=== PATIENT | female | born 1960 | race Caucasian/White ===

== ENCOUNTER → 2016-05-29 | Outpatient (CLI) | payer OTHER ==
--- NOTE | 2016-05-29 10:24 | REPMRS ---
Patient History The patient states she has not had a clinical breast exam in over a year. Patient is postmenopausal. No known family history of cancer. Digital Woman Screen Mammo: May 29, 2016 - Exam #: [id number] Bilateral CC and MLO view(s) were taken. Technologist: Shira Mandel Technologist FINDINGS: There are scattered fibroglandular densities. There has been no change in the appearance of the mammogram from the prior studies. There is a mild amount of residual fibroglandular tissue which is fairly symmetric. There is no interval development of dominant mass, architectural distortion, or clustered microcalcification suggestive of malignancy. ASSESSMENT: BI-RADS/ACR category 1 mammogram. Negative. Recommendation Routine screening mammogram in 1 year (for women over age 40). This mammogram was interpreted with the aid of an FDA-approved computer-aided dectection system. Electronically Signed By: Chance Ku MD 05/29/16 [id number]
== END ==
LOC: M WHC 09:21
PROVIDERS: ATTEND Family Medicine
DX: Z12.39 Encounter for other screening for malignant neoplasm of breast (principal)

== ENCOUNTER → 2016-06-24 | Outpatient (CLI) | payer OTHER | LOC: M LAB 09:40 | PROVIDERS: ATTEND Family Medicine | DX: E11.8 Type 2 diabetes mellitus with unspecified complications (principal) ==

== ENCOUNTER → 2016-07-01 | Outpatient (REF) | payer OTHER | LOC: M SFHCPLAZ 09:22 | PROVIDERS: ATTEND Family Medicine | DX: E11.8 Type 2 diabetes mellitus with unspecified complications (principal) ==

== ENCOUNTER → 2016-08-12 | Day surgery (SDC) | payer OTHER ==
[~2016-08-12] VITALS: Ht 157.5 cm; Wt 99.8 kg
[~2016-08-12] MED LIST: ACETAMINOPHEN 325 MG TAB PO PRN; ACETYLCHOLINE OPHTH SOLN 1% 2ML As Ordered ONE; ALBU17IN INH; ARNU1INH INH; ATOR40TA PO; AcetaZOLAMIDE 500MG INJECTION (J1120) As Ordered ONE; BISO10TA6 PO; BSS with VANC/TOB/EPI for EYE CASES IR ONE; CYCLOPENTOLATE 2% OPHTH SOLN OD ONE; D5W/0.2% SODIUM CHLORIDE 250 ML IV SCH; GEMF600T PO; HEALON DUET (HEALON 10MG/ML 0.55ML & HEALON ENDOCOAT 30MG/ML 0.85ML) As Ordered ONE; INSULANT SC; JANU100T PO; KETOROLAC 0.5% OPHTH SOLN OD ONE; LEVO175T19 PO; LIDOCAINE 1% SDV 5 ML VIAL As Ordered ONE; LIDOCAINE 4% INJ 5 ML AMP OU ONE; METF500T PO; MIDAZOLAM INJ 2 MG/2 ML VIAL (J2250) As Ordered ONE; MOXIFLOXACIN IN BSS 0.25MG/0.25ML INTRACAMERAL INJ (OR EYE ONLY)(J2280) As Ordered ONE; NOVOINJ3 SC; OFLOXACIN 0.3 % (OCUFLOX) OPTH SOL 5ML OD ONE; OMEP20CA3 PO; PHENYLEPHRINE 2.5% OPHTH SOL 2ML OD ONE; POVIDONE-IODINE 5% OPHTH PREP SOL 30ML As Ordered ONE; PROPARACAINE 0.5% OPHTH SOL 15ML OD PRN; RANI150T PO; SYST1SOL OU; TOUJ1.2I SC; TRIAMCINOLONE PRES FR 40 MG/ML 1ML(TRIESENCE)(OR EYE ONLY)(J3300 PER 1MG) As Ordered ONE; TRIMETHOBENZAMIDE 300 MG CAP PO PRN; TROPICAMIDE 1% OPHTH SOLN 2 ML OD ONE; VITA1TAB27 PO; fentaNYL 100 MCG/2 ML INJECTION (J3010) As Ordered ONE
[2016-08-12 14:20] VITALS: BP 129/77
--- NOTE | 2016-08-12 20:37 | RO ---
DATE OF PROCEDURE: 08/12/2016 PREPROCEDURE DIAGNOSIS: Cataract of left eye. POSTPROCEDURE DIAGNOSIS: Cataract of left eye. PROCEDURE: Femtosecond laser and phacoemulsification of the intraocular lens with lens implantation left eye. Intraocular lens power used was PCB00, power 18.5 diopter. SURGEON: Marc Olson MD MANAGER CT: None. ANESTHESIA: Local IV standby. FINDINGS: Cataract of left eye. COMPLICATIONS: None. DESCRIPTION OF PROCEDURE: The patient was brought to the operating room and laid in supine position. The left eye was prepped and draped in a sterile fashion for opthalmic surgery. A lid speculum was placed. A sideport incision was then made and EndoCoat was injected into the anterior chamber. Subsequent to that temporal clear corneal incision was made with a 2.5 mm Keratome and capsulorrhexis was carried out, followed by hydrodissection, phacoemulsification in the capsular bag. The patient was extremely agitated and could not hold straight. More versed was given. At the time of the insertion of the intraocular lens after the Viscoelastic was placed, the patient again made a sudden movement and the edge of the lens nicked the posterior capsule superiorly. A small rent was noted. It was felt at that point after situating the lens, after positioning in the lens, that the lens was in pretty stable condition. Excess Viscoelastic was then aspirated. Miochol was placed. The lid speculum removed. Wound hydrated. Kenalog and intracameral moxifloxacin was then given. The patient was returned to the recovery room and the events of the surgery were discussed in detail with the patient.
== END | disposition home or self-care (01) ==
LOC: M SDC 10:46
PROVIDERS: ATTEND Ophthalmology
DX: H26.9 Unspecified cataract (principal); I10 Essential (primary) hypertension; E03.9 Hypothyroidism, unspecified; E78.5 Hyperlipidemia, unspecified; E11.9 Type 2 diabetes mellitus without complications; K21.9 Gastro-esophageal reflux disease without esophagitis; J45.909 Unspecified asthma, uncomplicated; Z79.899 Other long term (current) drug therapy; Z91.040 Latex allergy status; Z88.0 Allergy status to penicillin; Z88.2 Allergy status to sulfonamides; Z88.8 Allergy status to other drugs, medicaments and biological substances; Z91.030 Bee allergy status
CPT/HCPCS: 66984; J1120; J2250; J2280; J3010; J3300

== ENCOUNTER → 2016-10-07 | Outpatient (REF) | payer OTHER ==
[~2016-10-07] MED LIST changes: -ACETAMINOPHEN 325 MG TAB PO PRN; -ACETYLCHOLINE OPHTH SOLN 1% 2ML As Ordered ONE; -AcetaZOLAMIDE 500MG INJECTION (J1120) As Ordered ONE; -BSS with VANC/TOB/EPI for EYE CASES IR ONE; -CYCLOPENTOLATE 2% OPHTH SOLN OD ONE; -D5W/0.2% SODIUM CHLORIDE 250 ML IV SCH; -HEALON DUET (HEALON 10MG/ML 0.55ML & HEALON ENDOCOAT 30MG/ML 0.85ML) As Ordered ONE; -KETOROLAC 0.5% OPHTH SOLN OD ONE; -LIDOCAINE 1% SDV 5 ML VIAL As Ordered ONE; -LIDOCAINE 4% INJ 5 ML AMP OU ONE; -MIDAZOLAM INJ 2 MG/2 ML VIAL (J2250) As Ordered ONE; -MOXIFLOXACIN IN BSS 0.25MG/0.25ML INTRACAMERAL INJ (OR EYE ONLY)(J2280) As Ordered ONE; -OFLOXACIN 0.3 % (OCUFLOX) OPTH SOL 5ML OD ONE; -PHENYLEPHRINE 2.5% OPHTH SOL 2ML OD ONE; -POVIDONE-IODINE 5% OPHTH PREP SOL 30ML As Ordered ONE; -PROPARACAINE 0.5% OPHTH SOL 15ML OD PRN; -TRIAMCINOLONE PRES FR 40 MG/ML 1ML(TRIESENCE)(OR EYE ONLY)(J3300 PER 1MG) As Ordered ONE; -TRIMETHOBENZAMIDE 300 MG CAP PO PRN; -TROPICAMIDE 1% OPHTH SOLN 2 ML OD ONE; -fentaNYL 100 MCG/2 ML INJECTION (J3010) As Ordered ONE
[2016-10-07 12:24] LABS: CALCIUM LEVEL 8.6 MG/DL (8.5-10.1); CREATININE FOR GFR 1.12 MG/DL (0.55-1.02); GLOMERULAR FILTRATION RATE 53.4 (>51); POTASSIUM SERUM 4.1 MEQ/L (3.5-5.1)
== END ==
LOC: M SFHCPLAZ 09:25
PROVIDERS: ATTEND Family Medicine
DX: I10 Essential (primary) hypertension (principal); E11.8 Type 2 diabetes mellitus with unspecified complications

== ENCOUNTER → 2016-10-15 | Outpatient (REF) | payer OTHER | LOC: M SFHCPLAZ 10-14 11:40 | PROVIDERS: ATTEND Family Medicine | DX: E11.8 Type 2 diabetes mellitus with unspecified complications (principal) ==

== ENCOUNTER → 2016-11-11 | Day surgery (SDC) | payer OTHER ==
[~2016-11-11] VITALS: Ht 157.5 cm; Wt 101.2 kg
[~2016-11-11] MED LIST changes: +ACETAMINOPHEN 325 MG TAB PO PRN; +BSS with VANC/TOB/EPI for EYE CASES IR ONE; +CYCLOPENTOLATE 2% OPHTH SOLN 2ML BTL As Ordered ONE; +CYCLOPENTOLATE 2% OPHTH SOLN 2ML BTL OS ONE; +HEALON DUET (HEALON 10MG/ML 0.55ML & HEALON ENDOCOAT 30MG/ML 0.85ML) As Ordered ONE; +KETOROLAC 0.5% OPHTH SOLN OS ONE; +LIDOCAINE 1% SDV 5 ML VIAL As Ordered ONE; +LIDOCAINE 4% INJ 5 ML AMP OU ONE; +MIDAZOLAM INJ 2 MG/2 ML VIAL (J2250) As Ordered ONE; +MOXIFLOXACIN IN BSS 0.25MG/0.25ML INTRACAMERAL INJ (OR EYE ONLY)(J2280) As Ordered ONE; +OFLOXACIN 0.3 % (OCUFLOX) OPTH SOL 5ML As Ordered ONE; +OFLOXACIN 0.3 % (OCUFLOX) OPTH SOL 5ML OS ONE; +PHENYLEPHRINE 2.5% OPHTH SOL 2ML As Ordered ONE; +PHENYLEPHRINE 2.5% OPHTH SOL 2ML OS ONE; +POVIDONE-IODINE 5% OPHTH PREP SOL 30ML As Ordered ONE; +TRIAMCINOLONE PRES FR 40 MG/ML 1ML(TRIESENCE)(OR EYE ONLY)(J3300 PER 1MG) As Ordered ONE; +TRIMETHOBENZAMIDE 300 MG CAP PO PRN; +TROPICAMIDE 1% OPHTH SOLN 2ML As Ordered ONE; +TROPICAMIDE 1% OPHTH SOLN 2ML OS ONE; +fentaNYL 100 MCG/2 ML INJECTION (J3010) As Ordered ONE
[2016-11-11 11:15] VITALS: BP 139/62
== END | disposition home or self-care (01) ==
LOC: M SDC 10:40
PROVIDERS: ATTEND Ophthalmology
DX: H25.9 Unspecified age-related cataract (principal); I10 Essential (primary) hypertension; E78.5 Hyperlipidemia, unspecified; E03.9 Hypothyroidism, unspecified; K21.9 Gastro-esophageal reflux disease without esophagitis; J45.909 Unspecified asthma, uncomplicated; E11.9 Type 2 diabetes mellitus without complications; Z88.8 Allergy status to other drugs, medicaments and biological substances; Z91.040 Latex allergy status; Z91.030 Bee allergy status; Z88.2 Allergy status to sulfonamides; Z88.0 Allergy status to penicillin; Z79.899 Other long term (current) drug therapy

== ENCOUNTER → 2017-01-08 | Outpatient (REF) | payer OTHER ==
[~2017-01-08] MED LIST changes: -ACETAMINOPHEN 325 MG TAB PO PRN; -ATOR40TA PO; +ATOR40TA75 PO; -BSS with VANC/TOB/EPI for EYE CASES IR ONE; -CYCLOPENTOLATE 2% OPHTH SOLN 2ML BTL As Ordered ONE; -CYCLOPENTOLATE 2% OPHTH SOLN 2ML BTL OS ONE; -HEALON DUET (HEALON 10MG/ML 0.55ML & HEALON ENDOCOAT 30MG/ML 0.85ML) As Ordered ONE; -KETOROLAC 0.5% OPHTH SOLN OS ONE; -LIDOCAINE 1% SDV 5 ML VIAL As Ordered ONE; -LIDOCAINE 4% INJ 5 ML AMP OU ONE; -METF500T PO; +METF500T13 PO; -MIDAZOLAM INJ 2 MG/2 ML VIAL (J2250) As Ordered ONE; -MOXIFLOXACIN IN BSS 0.25MG/0.25ML INTRACAMERAL INJ (OR EYE ONLY)(J2280) As Ordered ONE; -OFLOXACIN 0.3 % (OCUFLOX) OPTH SOL 5ML As Ordered ONE; -OFLOXACIN 0.3 % (OCUFLOX) OPTH SOL 5ML OS ONE; -PHENYLEPHRINE 2.5% OPHTH SOL 2ML As Ordered ONE; -PHENYLEPHRINE 2.5% OPHTH SOL 2ML OS ONE; -POVIDONE-IODINE 5% OPHTH PREP SOL 30ML As Ordered ONE; -TRIAMCINOLONE PRES FR 40 MG/ML 1ML(TRIESENCE)(OR EYE ONLY)(J3300 PER 1MG) As Ordered ONE; -TRIMETHOBENZAMIDE 300 MG CAP PO PRN; -TROPICAMIDE 1% OPHTH SOLN 2ML As Ordered ONE; -TROPICAMIDE 1% OPHTH SOLN 2ML OS ONE; -fentaNYL 100 MCG/2 ML INJECTION (J3010) As Ordered ONE
== END ==
LOC: M SFHCPLAZ 09:21
PROVIDERS: ATTEND Family Medicine
DX: E11.22 Type 2 diabetes mellitus with diabetic chronic kidney disease (principal)

== ENCOUNTER → 2017-02-12 | Outpatient (REF) | payer OTHER | LOC: M SFHCPLAZ 13:44 | PROVIDERS: ATTEND Family Medicine | DX: D18.01 Hemangioma of skin and subcutaneous tissue (principal) ==

== ENCOUNTER → 2017-07-25 | Outpatient (REF) | payer OTHER ==
[2017-07-25 13:58] LABS: ANION GAP 10 MEQ/L (8-16); BLOOD UREA NITROGEN 29 MG/DL (7-18); CALCIUM LEVEL 9.3 MG/DL (8.5-10.1); CARBON DIOXIDE LEVEL 23 MEQ/L (21-32); CHLORIDE LEVEL 111 MEQ/L (98-107); CREATININE FOR GFR 1.12 MG/DL (0.55-1.30); GLOMERULAR FILTRATION RATE 53.2 (>51); GLUCOSE, FASTING 77 MG/DL (70-100); POTASSIUM SERUM 4.2 MEQ/L (3.5-5.1); SODIUM LEVEL 144 MEQ/L (136-145); THYROID STIMULATING HORMONE 0.301 uIU/ML (0.358-3.740)
[2017-07-25 15:09] LABS: ESTIMATED AVERAGE GLUCOSE 157 MG/DL (60-110); HEMOGLOBIN A1c 7.1 %
== END ==
LOC: M SFHCPLAZ 11:11
DX: E11.22 Type 2 diabetes mellitus with diabetic chronic kidney disease (principal); I10 Essential (primary) hypertension; E03.9 Hypothyroidism, unspecified

== ENCOUNTER 2017-12-02 21:49 | Inpatient (IN) | payer OTHER ==
[2017-12-02] MEDS: LABETALOL HCL 100 MG/20 ML VIAL IV (22:49)
[2017-12-02 23:05] LABS: BASO # 0.1 10^3/uL (0.0-0.2); BASO % 0.5 % (0.0-1.0); EOS # 0.2 10^3/uL (0.0-0.50); EOS % 2.2 % (0.0-3.0); HEMATOCRIT 38.7 % (36.0-47.0); HEMOGLOBIN 12.9 g/dl (12.0-15.5); IMMATURE GRANULOCYTE % 0.9 % (0-3.0); LYMPH # 2.5 10^3/uL (1.5-4.5); MEAN CORPUSCULAR HEMOGLOBIN 29.2 pg (27.0-33.0); MEAN CORPUSCULAR HGB CONC 33.3 g/dl (32.0-36.5); MEAN CORPUSCULAR VOLUME 87.6 fl (80.0-96.0); NEUTROPHILS # 5.8 10^3/uL (1.8-7.7); NEUTROPHILS % 60.4 % (36.0-66.0); PLATELET COUNT, AUTOMATED 238 10^3/uL (150-450); RED BLOOD COUNT 4.42 10^6/uL (4.00-5.40); RED CELL DISTRIBUTION WIDTH 14.9 % (11.5-14.5); WHITE BLOOD COUNT 9.6 10^3/uL (4.0-10.0)
[2017-12-02 23:19] LABS: PROTHROMBIN TIME 13.3 SECONDS (12.1-14.4)
[2017-12-02 23:20] LABS: PARTIAL THROMBOPLASTIN TIME 26.2 SECONDS (25.4-37.6)
[2017-12-02 23:30] LABS: ANION GAP 8 MEQ/L (8-16); BLOOD UREA NITROGEN 27 MG/DL (7-18); CALCIUM LEVEL 8.9 MG/DL (8.5-10.1); CARBON DIOXIDE LEVEL 27 MEQ/L (21-32); CHLORIDE LEVEL 111 MEQ/L (98-107); CK-MB VALUE MASS 1.4 NG/ML (<3.6); CPK CREATINE PHOSPHOKINASE 99 U/L (26-192); CREATININE FOR GFR 1.77 MG/DL (0.55-1.30); GLOMERULAR FILTRATION RATE 31.4 (>51); GLUCOSE, FASTING 114 MG/DL (70-100); MB/CK RELATIVE INDEX 1.41 (< OR =4); POTASSIUM SERUM 4.2 MEQ/L (3.5-5.1); SODIUM LEVEL 146 MEQ/L (136-145); TROPONIN I < 0.02 NG/ML (< 0.10)
[2017-12-03] MEDS ORDERED: niCARdipine IV 40 MG in APPROPRIATE DILUENT 1 EA IV (00:15)
[2017-12-03] MEDS ORDERED: LORazepam 2 MG/ML VIAL (J2060) As Ordered (01:28)
[2017-12-03] MEDS ORDERED: FAMOTIDINE 20 MG TAB PO (01:30)
[2017-12-03] MEDS ORDERED: ALBUTEROL 90 MCG/ACT 8GM HFA INHALER INH (01:30)
[2017-12-03] MEDS: LORazepam 2 MG/ML VIAL (J2060) IV (01:30)
[2017-12-03] MEDS ORDERED: GLUCOSE 4 GM CHEW TABLET PO (01:45)
[2017-12-03] MEDS ORDERED: DEXTROSE 50% 50 ML SYRINGE IV (01:45)
[2017-12-03] MEDS ORDERED: GLUCAGON FOR INJ 1 MG VIAL (J1610) SC (01:45)
[2017-12-03] MEDS: NS 0.45% IV ×2 (04:11→12:28)
[2017-12-03] MEDS: LEVOTHYROXINE 150MCG TABLET (0.15MG) PO (05:14)
[2017-12-03 07:06] LABS: BEDSIDE GLUCOSE 103 MG/DL (70-105)
[2017-12-03] MEDS: HumaLOG INSULIN (NovoLOG) PER UNIT SC ×3 (07:30→18:56)
[2017-12-03] MEDS ORDERED: ROSUVASTATIN 10 MG TAB (CRESTOR) PO (09:00)
[2017-12-03] MEDS ORDERED: BISOPROLOL FUMARATE 10 MG TAB PO (09:00)
[2017-12-03] MEDS: HEPARIN SOD (PORCINE) 5000 UNITS/ML VIAL SQ ×2 (09:07→20:58)
[2017-12-03] MEDS: ASPIRIN 81 MG ENTERIC TAB PO (09:07)
[2017-12-03] MEDS: ATORVASTATIN 20 MG TAB PO (09:07)
[2017-12-03] MEDS: OMEPRAZOLE 20 MG CAP PO (09:07)
[2017-12-03] MEDS: VITAMIN D 1,000 INTERNATIONAL UNITS TABLET PO (09:07)
[2017-12-03 11:52] LABS: BEDSIDE GLUCOSE 186 MG/DL (70-105)
[2017-12-03 17:02] LABS: BEDSIDE GLUCOSE 135 MG/DL (70-105)
[2017-12-03 18:47] LABS: BEDSIDE GLUCOSE 125 MG/DL (70-105)
[2017-12-03 20:47] LABS: BEDSIDE GLUCOSE 207 MG/DL (70-105)
[2017-12-03] MEDS: LORATADINE 10 MG TAB PO (20:58)
[2017-12-03] MEDS: LEVEMIR (INSULIN DETEMIR) 1 UNITS/0.01ML SC (20:58)
[2017-12-03] MEDS: MONTELUKAST 10 MG TAB PO (20:58)
[2017-12-03] MEDS ORDERED: LEVEMIR (INSULIN DETEMIR) 1 UNITS/0.01ML SC (21:00)
[2017-12-03 21:07] LABS: KETONE, URINE AUTO RFX NEGATIVE (NEGATIVE); RBC, URINE AUTO RFX 9 /HPF (0-3); SPECIFIC GRAVITY UR AUTO RFX 1.008 (1.002-1.035); SQUAM EPITHELIAL CELL UR AURFX 2 /HPF (0-6)
[2017-12-03 21:08] LABS: LEUKOCYTE ESTERASE UR AUTO RFX 3+ (NEGATIVE); NITRITE, URINE AUTO RFX POSITIVE (NEGATIVE); WBC, URINE AUTO RFX 182 /HPF (0-3)
[2017-12-03] MEDS: ACETAMINOPHEN TAB 650MG DOSE (2X325MG) PO (22:46)
[2017-12-04] MEDS: LABETALOL HCL 100 MG/20 ML VIAL IV ×2 (04:24→17:00)
[2017-12-04] MEDS: LEVOTHYROXINE 150MCG TABLET (0.15MG) PO (05:01)
[2017-12-04 06:33] LABS: HEMATOCRIT 39.9 % (36.0-47.0); HEMOGLOBIN 13.4 g/dl (12.0-15.5); MEAN CORPUSCULAR HEMOGLOBIN 28.8 pg (27.0-33.0); MEAN CORPUSCULAR HGB CONC 33.6 g/dl (32.0-36.5); MEAN CORPUSCULAR VOLUME 85.8 fl (80.0-96.0); PLATELET COUNT, AUTOMATED 212 10^3/uL (150-450); RED BLOOD COUNT 4.65 10^6/uL (4.00-5.40); RED CELL DISTRIBUTION WIDTH 14.8 % (11.5-14.5); WHITE BLOOD COUNT 7.4 10^3/uL (4.0-10.0)
[2017-12-04 06:48] LABS: ANION GAP 10 MEQ/L (8-16); BLOOD UREA NITROGEN 20 MG/DL (7-18); CALCIUM LEVEL 9.3 MG/DL (8.5-10.1); CARBON DIOXIDE LEVEL 26 MEQ/L (21-32); CHLORIDE LEVEL 111 MEQ/L (98-107); CREATININE FOR GFR 1.28 MG/DL (0.55-1.30); GLOMERULAR FILTRATION RATE 45.6 (>51); GLUCOSE, FASTING 108 MG/DL (70-100); POTASSIUM SERUM 3.9 MEQ/L (3.5-5.1); SODIUM LEVEL 147 MEQ/L (136-145)
[2017-12-04] MEDS: HumaLOG INSULIN (NovoLOG) PER UNIT SC ×3 (07:30→17:24)
[2017-12-04 08:03] LABS: FREE THYROXINE INDEX 4.4 % (1.3-4.8); T UPTAKE 34 % (30-39); THYROID STIMULATING HORMONE 0.817 uIU/ML (0.358-3.740); THYROXINE (T4) 12.8 UG/DL (4.5-12.0)
[2017-12-04] MEDS: HEPARIN SOD (PORCINE) 5000 UNITS/ML VIAL SQ (10:54)
[2017-12-04] MEDS: OMEPRAZOLE 20 MG CAP PO (10:55)
[2017-12-04] MEDS: ATORVASTATIN 20 MG TAB PO (10:55)
[2017-12-04] MEDS: ACETAMINOPHEN TAB 650MG DOSE (2X325MG) PO (10:56)
[2017-12-04] MEDS: ASPIRIN 81 MG ENTERIC TAB PO (10:57)
[2017-12-04] MEDS: VITAMIN D 1,000 INTERNATIONAL UNITS TABLET PO (10:57)
[2017-12-04 12:39] LABS: BEDSIDE GLUCOSE 132 MG/DL (70-105)
[2017-12-04 17:11] LABS: BEDSIDE GLUCOSE 210 MG/DL (70-105)
[2017-12-04 20:23] LABS: BEDSIDE GLUCOSE 290 MG/DL (70-105)
[2017-12-04] MEDS: LEVEMIR (INSULIN DETEMIR) 1 UNITS/0.01ML SC (20:23)
[2017-12-04] MEDS: APIXABAN 2.5 MG TAB (ELIQUIS) PO (20:24)
[2017-12-04] MEDS: LORATADINE 10 MG TAB PO (20:24)
[2017-12-04] MEDS: MONTELUKAST 10 MG TAB PO (20:24)
[2017-12-05] MEDS: LEVOTHYROXINE 150MCG TABLET (0.15MG) PO (06:25)
[2017-12-05 07:28] LABS: BEDSIDE GLUCOSE 172 MG/DL (70-105)
[2017-12-05] MEDS: HumaLOG INSULIN (NovoLOG) PER UNIT SC ×3 (07:54→16:59)
[2017-12-05] MEDS: ASPIRIN 81 MG ENTERIC TAB PO (08:00)
[2017-12-05] MEDS: ATORVASTATIN 20 MG TAB PO (08:00)
[2017-12-05] MEDS: OMEPRAZOLE 20 MG CAP PO (08:00)
[2017-12-05] MEDS: APIXABAN 2.5 MG TAB (ELIQUIS) PO (08:00)
[2017-12-05] MEDS: VITAMIN D 1,000 INTERNATIONAL UNITS TABLET PO (08:00)
[2017-12-05 09:49] LABS: BASO # 0.1 10^3/uL (0.0-0.2); BASO % 0.6 % (0.0-1.0); EOS # 0.3 10^3/uL (0.0-0.50); EOS % 3.6 % (0.0-3.0); HEMATOCRIT 39.4 % (36.0-47.0); HEMOGLOBIN 13.5 g/dl (12.0-15.5); IMMATURE GRANULOCYTE % 0.7 % (0-3.0); LYMPH # 1.9 10^3/uL (1.5-4.5); LYMPH % 23.4 % (24.0-44.0); MEAN CORPUSCULAR HEMOGLOBIN 29.2 pg (27.0-33.0); MEAN CORPUSCULAR HGB CONC 34.3 g/dl (32.0-36.5); MEAN CORPUSCULAR VOLUME 85.3 fl (80.0-96.0); MONO # 0.8 10^3/uL (0.0-0.8); MONO % 10.2 % (0.0-5.0); NEUTROPHILS # 4.9 10^3/uL (1.8-7.7); NEUTROPHILS % 61.5 % (36.0-66.0); PLATELET COUNT, AUTOMATED 229 10^3/uL (150-450); RED BLOOD COUNT 4.62 10^6/uL (4.00-5.40); RED CELL DISTRIBUTION WIDTH 14.6 % (11.5-14.5)
[2017-12-05 10:14] LABS: ANION GAP 10 MEQ/L (8-16); BLOOD UREA NITROGEN 24 MG/DL (7-18); CALCIUM LEVEL 8.9 MG/DL (8.5-10.1); CARBON DIOXIDE LEVEL 25 MEQ/L (21-32); CHLORIDE LEVEL 107 MEQ/L (98-107); CREATININE FOR GFR 1.29 MG/DL (0.55-1.30); GLOMERULAR FILTRATION RATE 45.2 (>51); GLUCOSE, FASTING 279 MG/DL (70-100); POTASSIUM SERUM 4.4 MEQ/L (3.5-5.1); SODIUM LEVEL 142 MEQ/L (136-145)
[2017-12-05] MEDS: LevoFLOXacin 500 MG TABLET PO (10:32)
[2017-12-05 11:22] LABS: BEDSIDE GLUCOSE 228 MG/DL (70-105)
[2017-12-05 16:33] LABS: BEDSIDE GLUCOSE 270 MG/DL (70-105)
== END 2017-12-05 19:14 | disposition home or self-care (01) | DRG 45 ==
LOC: M ED INP 21:50 → M PCU 12-03 17:16 → M ED 21:49
DX: I63.9 Cerebral infarction, unspecified (principal); N17.9 Acute kidney failure, unspecified; E11.22 Type 2 diabetes mellitus with diabetic chronic kidney disease; E11.40 Type 2 diabetes mellitus with diabetic neuropathy, unspecified; I48.91 Unspecified atrial fibrillation; Z68.41 Body mass index [BMI] 40.0-44.9, adult; N39.0 Urinary tract infection, site not specified; E66.9 Obesity, unspecified; I16.1 Hypertensive emergency; I12.9 Hypertensive chronic kidney disease with stage 1 through stage 4 chronic kidney disease, or unspecified chronic kidney disease; B96.20 Unspecified Escherichia coli [E. coli] as the cause of diseases classified elsewhere; E78.5 Hyperlipidemia, unspecified; N18.9 Chronic kidney disease, unspecified; J44.9 Chronic obstructive pulmonary disease, unspecified; J45.909 Unspecified asthma, uncomplicated; K21.9 Gastro-esophageal reflux disease without esophagitis; Z91.041 Radiographic dye allergy status; Z88.0 Allergy status to penicillin; Z88.6 Allergy status to analgesic agent; Z79.4 Long term (current) use of insulin; Z79.82 Long term (current) use of aspirin; Z79.899 Other long term (current) drug therapy; Z91.040 Latex allergy status; Z88.2 Allergy status to sulfonamides; Z91.018 Allergy to other foods; Z91.030 Bee allergy status

== ENCOUNTER → 2017-12-16 | Outpatient (REF) | payer OTHER ==
[2017-12-16 16:03] LABS: ANION GAP 10 MEQ/L (8-16); BLOOD UREA NITROGEN 18 MG/DL (7-18); CALCIUM LEVEL 8.8 MG/DL (8.5-10.1); CARBON DIOXIDE LEVEL 24 MEQ/L (21-32); CHLORIDE LEVEL 112 MEQ/L (98-107); CREATININE FOR GFR 1.13 MG/DL (0.55-1.30); GLOMERULAR FILTRATION RATE 52.6 (>51); GLUCOSE, FASTING 46 MG/DL (70-100); POTASSIUM SERUM 3.8 MEQ/L (3.5-5.1); SODIUM LEVEL 146 MEQ/L (136-145)
[2017-12-16 16:12] LABS: ESTIMATED AVERAGE GLUCOSE 146 MG/DL (60-110); HEMOGLOBIN A1c 6.7 %
== END ==
LOC: M SFHCPLAZ 11:52
DX: N17.9 Acute kidney failure, unspecified (principal); E11.22 Type 2 diabetes mellitus with diabetic chronic kidney disease
CPT/HCPCS: 83036

== ENCOUNTER → 2018-04-21 | Outpatient (REF) | payer OTHER | LOC: M SFHCPLAZ 15:50 | DX: E11.22 Type 2 diabetes mellitus with diabetic chronic kidney disease (principal); I48.0 Paroxysmal atrial fibrillation; E03.9 Hypothyroidism, unspecified; Z53.8 Procedure and treatment not carried out for other reasons ==

== ENCOUNTER → 2018-08-13 | Outpatient (REF) | payer OTHER ==
[~2018-08-13] MED LIST changes: +ADME100I SC; +AMLO5TAB6 PO; +ASPI81TAEC PO; +CLIN150C14 PO; +ELIQ2.5T PO; +EPIP0.3I2 INJ; -GEMF600T PO; +GEMF600T5 PO; +LEVA250T13 PO; +LISI-538 PO; +LORA10TA3 PO; +METF-877 PO; +MONT10TA2 PO; +OMEP20TA PO; +SYNT150T PO; +VITA100066 PO
[2018-08-13 15:06] LABS: ALBUMIN 3.4 GM/DL (3.2-5.2); BILIRUBIN,TOTAL 0.5 MG/DL (0.2-1.0); CALCIUM LEVEL 8.5 MG/DL (8.5-10.1); CHOLESTEROL RISK RATIO 4.659 (<5); CREATININE FOR GFR 1.07 MG/DL (0.55-1.30); GLOMERULAR FILTRATION RATE 55.9 (>51); POTASSIUM SERUM 4.5 MEQ/L (3.5-5.1); THYROID STIMULATING HORMONE 0.252 uIU/ML (0.358-3.740)
[2018-08-13 15:17] LABS: HEMOGLOBIN A1c 7.4 %
== END ==
LOC: M SFHCPLAZ 10:44
PROVIDERS: ATTEND Family Medicine
DX: E11.22 Type 2 diabetes mellitus with diabetic chronic kidney disease (principal); I10 Essential (primary) hypertension; E78.5 Hyperlipidemia, unspecified; E03.9 Hypothyroidism, unspecified

== ENCOUNTER → 2018-10-08 | Outpatient (CLI) | payer OTHER ==
[2018-10-08 10:22] LABS: HEMOGLOBIN A1c 7.2 %
== END ==
LOC: M LAB 09:19
PROVIDERS: ATTEND Family Medicine
DX: E03.9 Hypothyroidism, unspecified (principal); E11.22 Type 2 diabetes mellitus with diabetic chronic kidney disease

== ENCOUNTER → 2019-07-16 | Outpatient (REF) | payer OTHER ==
[~2019-07-16] MED LIST changes: +BISO10TA14 PO; -BISO10TA6 PO; -MONT10TA2 PO; +MONT10TA4 PO; +OMEP-358 PO; +OMEP1CAP73 PO; -OMEP20CA3 PO; -OMEP20TA PO
[2019-07-16 14:10] LABS: HEMATOCRIT 44.4 % (36.0-47.0); HEMOGLOBIN 14.6 g/dl (12.0-15.5); MEAN CORPUSCULAR HEMOGLOBIN 29.4 pg (27.0-33.0); MEAN CORPUSCULAR HGB CONC 32.9 g/dl (32.0-36.5); MEAN CORPUSCULAR VOLUME 89.5 fl (80.0-96.0); PLATELET COUNT, AUTOMATED 323 10^3/uL (150-450); RED BLOOD COUNT 4.96 10^6/uL (4.00-5.40); WHITE BLOOD COUNT 10.8 10^3/uL (4.0-10.0)
[2019-07-16 14:31] LABS: ALBUMIN 4.1 GM/DL (3.2-5.2); ALT/SGPT 28 U/L (12-78); BILIRUBIN,TOTAL 0.3 MG/DL (0.2-1.0); BLOOD UREA NITROGEN 26 MG/DL (7-18); CALCIUM LEVEL 9.6 MG/DL (8.8-10.2); CARBON DIOXIDE LEVEL 26 MEQ/L (21-32); CHLORIDE LEVEL 109 MEQ/L (98-107); CHOLESTEROL LEVEL 343 MG/DL (<200); CHOLESTEROL RISK RATIO 8.365 (<5); CREATININE FOR GFR 1.36 MG/DL (0.55-1.30); GLOMERULAR FILTRATION RATE 42.2 (>45); GLUCOSE, FASTING 30 MG/DL (70-100); HDL CHOLESTEROL 41 MG/DL (>40); NON-HDL-C 302 MG/DL; POTASSIUM SERUM 4.4 MEQ/L (3.5-5.1); SODIUM LEVEL 142 MEQ/L (136-145); TOTAL PROTEIN 7.9 GM/DL (6.4-8.2); TRIGLYCERIDES LEVEL 409 MG/DL (<150)
[2019-07-16 14:35] LABS: HEMOGLOBIN A1c 6.9 %
== END ==
LOC: M SFHCPLAZ 10:23
PROVIDERS: ATTEND Family Medicine
DX: N18.3 Chronic kidney disease, stage 3 (moderate) (principal); I10 Essential (primary) hypertension; E78.2 Mixed hyperlipidemia; E11.22 Type 2 diabetes mellitus with diabetic chronic kidney disease; E03.9 Hypothyroidism, unspecified

== ENCOUNTER 2019-07-24 08:34 | Emergency (ER) | payer OTHER ==
[~2019-07-24] VITALS: Ht 157.5 cm; Wt 104.5 kg
[2019-07-24] MEDS ORDERED: LISI-538 PO (08:58)
[2019-07-24 09:28] LABS: VENOUS BASE EXCESS -2.4 (-2.0-2.0); VENOUS HCO3 25.3 MEQ/L (23.0-27.0); VENOUS O2 SATURATION 83.1 % (60.0-80.0); VENOUS PARTIAL PRESSURE CO2 54.6 mmHg (38.0-50.0); VENOUS PARTIAL PRESSURE O2 51.2 mmHg (30.0-50.0); VENOUS PH 7.283 UNITS (7.330-7.430); VENOUS STANDARD HCO3 22.2 MEQ/L; VENOUS TOTAL CO2 26.9 MEQ/L (24.0-28.0)
[2019-07-24 09:31] LABS: BASO % 0.4 % (0.0-1.0); EOS # 0.1 10^3/uL (0.0-0.5); EOS % 1.2 % (0.0-3.0); HEMATOCRIT 45.3 % (36.0-47.0); HEMOGLOBIN 14.7 g/dl (12.0-15.5); LYMPH % 22.6 % (24.0-44.0); MEAN CORPUSCULAR HEMOGLOBIN 29.6 pg (27.0-33.0); MEAN CORPUSCULAR HGB CONC 32.5 g/dl (32.0-36.5); MEAN CORPUSCULAR VOLUME 91.3 fl (80.0-96.0); MONO # 0.6 10^3/uL (0.0-0.8); MONO % 6.6 % (0.0-5.0); NEUTROPHILS # 6.1 10^3/uL (1.5-8.5); NEUTROPHILS % 68.3 % (36.0-66.0); PLATELET COUNT, AUTOMATED 311 10^3/uL (150-450); RED BLOOD COUNT 4.96 10^6/uL (4.00-5.40); WHITE BLOOD COUNT 8.9 10^3/uL (4.0-10.0)
--- NOTE | 2019-07-24 09:56 | REP ---
CT BRAIN WITHOUT IV CONTRAST: CT brain performed without IV contrast. Ventricles are normal in size and position with no midline shift or mass effect. Ku-white differentiation is well maintained. There is no acute intracranial hemorrhage. There is no extra-axial fluid collection. Bone window examination is unremarkable. IMPRESSION: Negative noncontrast CT brain. Electronically Signed by Chance Ku MD 07/24/2019 06:35 P
[2019-07-24 10:16] LABS: ALBUMIN 3.7 GM/DL (3.2-5.2); ALT/SGPT 33 U/L (12-78); BILIRUBIN,DIRECT < 0.1 MG/DL (0.0-0.2); BILIRUBIN,TOTAL 0.2 MG/DL (0.2-1.0); BLOOD UREA NITROGEN 25 MG/DL (7-18); CALCIUM LEVEL 8.4 MG/DL (8.8-10.2); CARBON DIOXIDE LEVEL 25 MEQ/L (21-32); CHLORIDE LEVEL 113 MEQ/L (98-107); CPK CREATINE PHOSPHOKINASE 345 U/L (26-192); CREATININE FOR GFR 1.46 MG/DL (0.55-1.30); GLOMERULAR FILTRATION RATE 38.9 (>45); GLUCOSE, FASTING 59 MG/DL (70-100); MB/CK RELATIVE INDEX 0.58 (< OR =4); SODIUM LEVEL 142 MEQ/L (136-145); TOTAL PROTEIN 7.9 GM/DL (6.4-8.2); TROPONIN I < 0.02 NG/ML (< 0.10)
[2019-07-24 12:03] LABS: POTASSIUM SERUM 4.3 MEQ/L (3.5-5.1)
[2019-07-24 14:05] LABS: FREE THYROXINE INDEX 0.8 % (1.3-4.8); THYROID STIMULATING HORMONE 69.6 uIU/ML (0.358-3.740); THYROXINE (T4) 3.1 UG/DL (4.5-12.0)
[2019-07-24] MEDS ORDERED: CVS1KIT XX (15:52)
[2019-07-24] MEDS ORDERED: BASA100I SC (16:24)
[2019-07-24] MEDS ORDERED: BASA100I SQ (16:24)
[2019-07-24] MEDS ORDERED: FORA1KIT XX (16:36)
[2019-07-24 16:39] VITALS: BP 181/81
--- NOTE | 2019-07-24 17:52 | ECGEPIP ---
[facility] - ED Test Date: 2019-07-24 Pat Name: PHIL ORTEGA Department: Room: - Gender: Female Pcu Rn: : [id number] Requested By: Janell Knapp Order Number: [id number] Reading MD: Janell Knapp Measurements Intervals [place] Rate: 67 P: 61 WV: 132 QRS: 39 QRSD: 88 T: 26 QT: 391 QTc: 414 Interpretive Statements SINUS RHYTHM PRIOR ATRIAL FIBRILLATION 12/04/17 Electronically Signed on 07-24-2019 17:52:50 EST by Janell Knapp
== END 2019-07-24 16:48 | disposition home or self-care (01) ==
LOC: EDBD 08:34 → M ED 08:34
DX: E03.9 Hypothyroidism, unspecified (principal); E11.649 Type 2 diabetes mellitus with hypoglycemia without coma; N18.3 Chronic kidney disease, stage 3 (moderate); I12.9 Hypertensive chronic kidney disease with stage 1 through stage 4 chronic kidney disease, or unspecified chronic kidney disease; I48.91 Unspecified atrial fibrillation; Z79.01 Long term (current) use of anticoagulants; J45.909 Unspecified asthma, uncomplicated; Z88.0 Allergy status to penicillin; Z88.2 Allergy status to sulfonamides; Z88.8 Allergy status to other drugs, medicaments and biological substances; Z91.040 Latex allergy status; Z91.030 Bee allergy status; Z91.018 Allergy to other foods

== ENCOUNTER → 2019-10-15 | Outpatient (REF) | payer OTHER ==
[~2019-10-15] MED LIST changes: +BASA100I SC; +BASA100I SQ; +CVS1KIT XX; +FORA1KIT XX
[2019-10-15 13:31] LABS: CALCIUM LEVEL 9.6 MG/DL (8.8-10.2); CREATININE FOR GFR 1.41 MG/DL (0.55-1.30); GLOMERULAR FILTRATION RATE 40.5 (>45); POTASSIUM SERUM 4.5 MEQ/L (3.5-5.1); THYROID STIMULATING HORMONE 83.5 uIU/ML (0.358-3.740)
[2019-10-15 15:02] LABS: HEMOGLOBIN A1c 7.1 %
== END ==
LOC: M PLALAB 10:51
PROVIDERS: ATTEND Family Medicine
DX: E11.22 Type 2 diabetes mellitus with diabetic chronic kidney disease (principal); I10 Essential (primary) hypertension; E03.9 Hypothyroidism, unspecified

== ENCOUNTER → 2019-12-14 | Outpatient (REF) | payer OTHER ==
[~2019-12-14] MED LIST changes: +AMLO1TAB24 PO; -AMLO5TAB6 PO
[2019-12-14 13:45] LABS: CALCIUM LEVEL 9.3 MG/DL (8.8-10.2); CREATININE FOR GFR 1.34 MG/DL (0.55-1.30); POTASSIUM SERUM 4.1 MEQ/L (3.5-5.1)
== END ==
LOC: M PLALAB 10:43
PROVIDERS: ATTEND Family Medicine
DX: N18.3 Chronic kidney disease, stage 3 (moderate) (principal)

== ENCOUNTER → 2020-01-18 | Outpatient (CLI) | payer OTHER ==
[2020-01-18 13:25] LABS: CREATININE FOR GFR 1.26 MG/DL (0.55-1.30); FREE T4 0.91 NG/DL (0.76-1.46); GLOMERULAR FILTRATION RATE 46.1 (>45); POTASSIUM SERUM 4.2 MEQ/L (3.5-5.1); THYROID STIMULATING HORMONE 15.6 uIU/ML (0.358-3.740)
[2020-01-18 14:31] LABS: HEMOGLOBIN A1c 9.6 %
== END ==
LOC: M PLALAB 09:24
PROVIDERS: ATTEND Family Medicine
DX: E11.22 Type 2 diabetes mellitus with diabetic chronic kidney disease (principal); N18.3 Chronic kidney disease, stage 3 (moderate); E03.9 Hypothyroidism, unspecified

== ENCOUNTER → 2021-02-15 | Outpatient (CLI) | payer OTHER ==
[~2021-02-15] MED LIST changes: +ASPI-569 PO; -ASPI81TAEC PO; -CLIN150C14 PO; +CLIN150C17 PO; -LISI-538 PO; +LISI20TA33 PO; +MONT10TA10 PO; -MONT10TA4 PO
[2021-02-15 11:30] LABS: BASO # 0.1 10^3/uL (0.0-0.2); BASO % 0.7 % (0.0-1.0); EOS # 0.2 10^3/uL (0.0-0.5); EOS % 2.8 % (0.0-3.0); HEMATOCRIT 43.8 % (36.0-47.0); HEMOGLOBIN 14.9 g/dl (12.0-15.5); LYMPH # 2.1 10^3/uL (1.5-5.0); LYMPH % 24.1 % (24.0-44.0); MEAN CORPUSCULAR VOLUME 85.4 fl (80.0-96.0); MONO # 0.9 10^3/uL (0.0-0.8); NEUTROPHILS # 5.3 10^3/uL (1.5-8.5); NEUTROPHILS % 61.6 % (36.0-66.0); PLATELET COUNT, AUTOMATED 237 10^3/uL (150-450); RED BLOOD COUNT 5.13 10^6/uL (4.00-5.40); WHITE BLOOD COUNT 8.6 10^3/uL (4.0-10.0)
[2021-02-15 11:59] LABS: HEMOGLOBIN A1c 13.2 %
[2021-02-15 15:46] LABS: ALBUMIN 3.4 GM/DL (3.2-5.2); ALT/SGPT 28 U/L (12-78); BILIRUBIN,TOTAL 0.4 MG/DL (0.2-1.0); BLOOD UREA NITROGEN 23 MG/DL (7-18); CALCIUM LEVEL 9.3 MG/DL (8.8-10.2); CARBON DIOXIDE LEVEL 29 MEQ/L (21-32); CHLORIDE LEVEL 102 MEQ/L (98-107); CHOLESTEROL LEVEL 276 MG/DL (<200); CHOLESTEROL RISK RATIO 6.731 (<5); CREATININE FOR GFR 1.39 MG/DL (0.55-1.30); GLUCOSE, FASTING 489 MG/DL (70-100); HDL CHOLESTEROL 41 MG/DL (>40); NON-HDL-C 235 MG/DL; POTASSIUM SERUM 4.3 MEQ/L (3.5-5.1); SODIUM LEVEL 138 MEQ/L (136-145); TOTAL 25(OH) VITAMIN D 16.1 NG/ML (30.0-100.0); TOTAL PROTEIN 7.1 GM/DL (6.4-8.2); TRIGLYCERIDES LEVEL 436 MG/DL (<150)
== END ==
LOC: M LAB 10:34
PROVIDERS: ATTEND Pediatrics
DX: E78.2 Mixed hyperlipidemia (principal)

== ENCOUNTER → 2022-06-17 | Outpatient (REF) | payer OTHER ==
[~2022-06-17] MED LIST changes: -MONT10TA10 PO; +MONT10TA97 PO
[2022-06-19 07:36] LABS: HEMOGLOBIN A1c 9.3 % (4.0-6.0)
[2022-06-19 07:37] LABS: HEMOGLOBIN 14.9 g/dl (12.0-15.5); RED BLOOD COUNT 5.11 10^6/uL (4.00-5.40); WHITE BLOOD COUNT 8.2 10^3/uL (4.0-10.0)
[2022-06-19 07:38] LABS: BASO # 0.1 10^3/uL (0.0-0.2); BASO % 0.9 % (0.0-1.0); EOS # 0.3 10^3/uL (0.0-0.5); EOS % 3.3 % (0.0-3.0); HEMATOCRIT 46.5 % (36.0-47.0); LYMPH # 1.8 10^3/uL (1.5-5.0); LYMPH % 22.5 % (24.0-44.0); MEAN CORPUSCULAR HEMOGLOBIN 29.2 pg (27.0-33.0); MONO # 0.8 10^3/uL (0.0-0.8); MONO % 9.2 % (2.0-8.0); NEUTROPHILS # 5.2 10^3/uL (1.5-8.5); NEUTROPHILS % 63.5 % (36.0-66.0); PLATELET COUNT, AUTOMATED 250 10^3/uL (150-450)
[2022-06-19 07:42] LABS: CALCIUM LEVEL 10.2 MG/DL (8.3-10.6); CARBON DIOXIDE LEVEL 28.9 MMOL/L (20-31); CREATININE FOR GFR 1.21 MG/DL (0.55-1.30); GLOMERULAR FILTRATION RATE 47.8 (>45); POTASSIUM SERUM 4.9 MMOL/L (3.5-5.1)
[2022-06-19 07:43] LABS: ALBUMIN 3.6 G/DL (3.2-5.2); BILIRUBIN,TOTAL 0.3 MG/DL (0.3-1.2); THYROID STIMULATING HORMONE 0.373 uIU/ML (0.55-4.78); TOTAL PROTEIN 7.2 G/DL (5.7-8.2)
== END ==
LOC: M LAB REF 14:44
PROVIDERS: ATTEND Pediatrics
DX: E11.618 Type 2 diabetes mellitus with other diabetic arthropathy (principal); E03.9 Hypothyroidism, unspecified

== ENCOUNTER 2022-12-20 19:24 | Emergency (ER) | payer OTHER ==
[~2022-12-20] VITALS: Ht 157.5 cm; Wt 106.4 kg
[2022-12-20 20:25] LABS: BASO # 0.1 10^3/uL (0.0-0.2); BASO % 0.6 % (0.0-1.0); EOS # 0.1 10^3/uL (0.0-0.5); EOS % 0.9 % (0.0-3.0); HEMATOCRIT 43.5 % (36.0-47.0); HEMOGLOBIN 14.4 g/dl (12.0-15.5); LYMPH # 1.3 10^3/uL (1.5-5.0); LYMPH % 10.3 % (24.0-44.0); MEAN CORPUSCULAR HEMOGLOBIN 28.8 pg (27.0-33.0); MEAN CORPUSCULAR HGB CONC 33.1 g/dl (32.0-36.5); MONO % 8.2 % (2.0-8.0); NEUTROPHILS # 9.8 10^3/uL (1.5-8.5); NEUTROPHILS % 78.5 % (36.0-66.0); PLATELET COUNT, AUTOMATED 236 10^3/uL (150-450); WHITE BLOOD COUNT 12.5 10^3/uL (4.0-10.0)
[2022-12-20 20:53] LABS: ALBUMIN 3.3 G/DL (3.2-5.2); BILIRUBIN,TOTAL 0.5 MG/DL (0.3-1.2); CALCIUM LEVEL 9.3 MG/DL (8.3-10.6); CREATININE FOR GFR 1.47 MG/DL (0.55-1.30); GLOMERULAR FILTRATION RATE 38.2 (>45); POTASSIUM SERUM 4.1 MMOL/L (3.5-5.1); TOTAL PROTEIN 7.1 G/DL (5.7-8.2)
[2022-12-20] MEDS ORDERED: NS 1,000 ML IV ONE (21:05)
[2022-12-20] MEDS ORDERED: ISOVUE-370 76% 100ML VIAL As Ordered ONE (21:13)
[2022-12-20 23:34] VITALS: TEMP 98.2
[2022-12-20 23:39] VITALS: BP 148/70; O2SAT 95
== END 2022-12-21 01:10 | disposition home or self-care (01) ==
LOC: M ED 19:24
DX: R42 Dizziness and giddiness (principal); I48.91 Unspecified atrial fibrillation; E11.9 Type 2 diabetes mellitus without complications; J45.909 Unspecified asthma, uncomplicated; J44.9 Chronic obstructive pulmonary disease, unspecified; E78.5 Hyperlipidemia, unspecified; E03.9 Hypothyroidism, unspecified; Z79.4 Long term (current) use of insulin; Z79.82 Long term (current) use of aspirin; Z79.899 Other long term (current) drug therapy; Z88.0 Allergy status to penicillin; Z88.2 Allergy status to sulfonamides; Z88.8 Allergy status to other drugs, medicaments and biological substances; Z91.018 Allergy to other foods; Z91.030 Bee allergy status
CPT/HCPCS: 70450; 70496; 70498; 80053; 85025; 93005; 99284; Q9967

== ENCOUNTER → 2023-02-11 | Outpatient (CLI) | payer OTHER | LOC: M SOG 08:12 | PROVIDERS: ATTEND Physician Assistant | DX: M25.532 Pain in left wrist (principal); Z53.9 Procedure and treatment not carried out, unspecified reason ==

== ENCOUNTER → 2023-05-23 | Outpatient (CLI) | payer OTHER | LOC: M SOG 13:47 | PROVIDERS: ATTEND Orthopaedic Surgery Hand Surgery | DX: M25.542 Pain in joints of left hand (principal) ==

== ENCOUNTER → 2023-10-10 | Outpatient (REF) | payer OTHER ==
[2023-10-10 12:46] LABS: BASO % 0.5 % (0.0-1.0); EOS # 0.3 10^3/uL (0.0-0.5); EOS % 3.9 % (0.0-3.0); HEMATOCRIT 38.6 % (36.0-47.0); HEMOGLOBIN 12.5 g/dl (12.0-15.5); LYMPH # 1.6 10^3/uL (1.5-5.0); LYMPH % 19.5 % (24.0-44.0); MEAN CORPUSCULAR HEMOGLOBIN 28.2 pg (27.0-33.0); MEAN CORPUSCULAR HGB CONC 32.4 g/dl (32.0-36.5); MEAN CORPUSCULAR VOLUME 87.1 fl (80.0-96.0); MONO # 0.7 10^3/uL (0.0-0.8); NEUTROPHILS # 5.6 10^3/uL (1.5-8.5); NEUTROPHILS % 67.4 % (36.0-66.0); PLATELET COUNT, AUTOMATED 258 10^3/uL (150-450); RED BLOOD COUNT 4.43 10^6/uL (4.00-5.40); WHITE BLOOD COUNT 8.3 10^3/uL (4.0-10.0)
[2023-10-10 13:04] LABS: INR 1.27; PARTIAL THROMBOPLASTIN TIME 28.3 SECONDS (24.8-34.2); PROTHROMBIN TIME 15.5 SECONDS (12.5-14.5)
[2023-10-10 13:09] LABS: ALBUMIN 3.2 G/DL (3.2-5.2); BILIRUBIN,TOTAL 0.3 MG/DL (0.3-1.2); CREATININE FOR GFR 1.31 MG/DL (0.55-1.30); GLOMERULAR FILTRATION RATE 43.5 (>45); POTASSIUM SERUM 4.9 MMOL/L (3.5-5.1); TOTAL PROTEIN 6.8 G/DL (5.7-8.2)
[2023-10-10 13:12] LABS: THYROID STIMULATING HORMONE 2.331 uIU/ML (0.55-4.78)
[2023-10-10 13:15] LABS: BACTERIA, URINE LARGE AMOUNT; HYALINE CAST, URINE NONE SEEN /lpf (0-1); RBC, URINE NONE SEEN /hpf (0-3); SQUAMOUS EPITHELIAL CELL URINE LARGE AMOUNT /hpf (SMALL AMT)
[2023-10-10 13:44] LABS: HEMOGLOBIN A1c 13.7 % (4.0-6.0)
== END ==
LOC: M LAB REF 12:11
PROVIDERS: ATTEND Pediatrics
DX: E11.618 Type 2 diabetes mellitus with other diabetic arthropathy (principal); E03.9 Hypothyroidism, unspecified; R23.3 Spontaneous ecchymoses

== ENCOUNTER 2023-12-24 10:46 | Emergency (ER) | payer OTHER ==
[~2023-12-24] VITALS: Ht 157.5 cm; Wt 108.4 kg
[2023-12-24] MEDS: ACETAMINOPHEN TAB 650MG DOSE (2X325MG) PO ONE (13:31)
[2023-12-24 13:39] LABS: BASO % 0.3 % (0.0-1.0); EOS # 0.2 10^3/uL (0.0-0.5); EOS % 1.7 % (0.0-3.0); HEMATOCRIT 35.9 % (36.0-47.0); HEMOGLOBIN 11.5 g/dl (12.0-15.5); LYMPH # 1.8 10^3/uL (1.5-5.0); LYMPH % 15.1 % (24.0-44.0); MEAN CORPUSCULAR HEMOGLOBIN 27.3 pg (27.0-33.0); MEAN CORPUSCULAR VOLUME 85.1 fl (80.0-96.0); MONO # 1.1 10^3/uL (0.0-0.8); MONO % 9.4 % (2.0-8.0); NEUTROPHILS # 8.6 10^3/uL (1.5-8.5); NEUTROPHILS % 72.7 % (36.0-66.0); PLATELET COUNT, AUTOMATED 305 10^3/uL (150-450); RED BLOOD COUNT 4.22 10^6/uL (4.00-5.40); WHITE BLOOD COUNT 11.8 10^3/uL (4.0-10.0)
[2023-12-24 13:43] LABS: ERYTHROCYTE SEDIMENTATION RATE 85 mm/hr (0-30)
[2023-12-24 14:51] LABS: URIC ACID 8.7 MG/DL (3.1-7.8)
[2023-12-24 14:55] LABS: ALBUMIN 3.2 G/DL (3.2-5.2); ALKALINE PHOSPHATASE 97 U/L (46-116); ALT/SGPT 14 U/L (7.0-40); AST/SGOT < 8 U/L (<34); BILIRUBIN,TOTAL 0.4 MG/DL (0.3-1.2); BLOOD UREA NITROGEN 23 MG/DL (9-23); CALCIUM LEVEL 9.3 MG/DL (8.3-10.6); CARBON DIOXIDE LEVEL 26 MMOL/L (20-31); CHLORIDE LEVEL 105 MMOL/L (98-107); CREATININE FOR GFR 1.53 MG/DL (0.55-1.30); GLOMERULAR FILTRATION RATE 36.4 (>45); GLUCOSE, FASTING 135 MG/DL (74-106); POTASSIUM SERUM 4.1 MMOL/L (3.5-5.1); SODIUM LEVEL 138 MMOL/L (136-145); TOTAL PROTEIN 6.9 G/DL (5.7-8.2)
[2023-12-24 15:01] VITALS: BP 123/68; TEMP 97.9; O2SAT 96
[2023-12-24] MEDS ORDERED: PRED20TA PO (15:13)
== END 2023-12-24 15:45 | disposition home or self-care (01) ==
LOC: M ED 10:46
DX: M10.072 Idiopathic gout, left ankle and foot (principal); E11.9 Type 2 diabetes mellitus without complications; J44.9 Chronic obstructive pulmonary disease, unspecified; K21.9 Gastro-esophageal reflux disease without esophagitis; F41.9 Anxiety disorder, unspecified; Z79.01 Long term (current) use of anticoagulants; Z79.82 Long term (current) use of aspirin; Z79.4 Long term (current) use of insulin; Z79.899 Other long term (current) drug therapy; Z88.0 Allergy status to penicillin; Z88.2 Allergy status to sulfonamides; Z88.8 Allergy status to other drugs, medicaments and biological substances; Z91.040 Latex allergy status; Z91.030 Bee allergy status; Z91.018 Allergy to other foods

== ENCOUNTER → 2024-02-10 | Outpatient (REF) | payer OTHER ==
[~2024-02-10] MED LIST changes: +PRED20TA PO
[2024-02-10 14:04] LABS: BASO # 0.1 10^3/uL (0.0-0.2); BASO % 0.9 % (0.0-1.0); EOS # 0.6 10^3/uL (0.0-0.5); EOS % 6.3 % (0.0-3.0); HEMATOCRIT 38.9 % (36.0-47.0); HEMOGLOBIN 12.1 g/dl (12.0-15.5); LYMPH % 21.9 % (24.0-44.0); MEAN CORPUSCULAR HEMOGLOBIN 25.7 pg (27.0-33.0); MEAN CORPUSCULAR HGB CONC 31.1 g/dl (32.0-36.5); MEAN CORPUSCULAR VOLUME 82.6 fl (80.0-96.0); MONO # 0.9 10^3/uL (0.0-0.8); NEUTROPHILS # 5.4 10^3/uL (1.5-8.5); NEUTROPHILS % 58.6 % (36.0-66.0); RED BLOOD COUNT 4.71 10^6/uL (4.00-5.40); WHITE BLOOD COUNT 9.2 10^3/uL (4.0-10.0)
[2024-02-10 14:10] LABS: CALCIUM LEVEL 10.3 MG/DL (8.3-10.6); CREATININE FOR GFR 1.23 MG/DL (0.55-1.30); GLOMERULAR FILTRATION RATE 46.8 (>45); POTASSIUM SERUM 4.2 MMOL/L (3.5-5.1)
[2024-02-10 14:11] LABS: ERYTHROCYTE SEDIMENTATION RATE 73 mm/hr (0-30); THYROID STIMULATING HORMONE 12.163 uIU/ML (0.55-4.78)
== END ==
LOC: M LAB REF 13:25
PROVIDERS: ATTEND Pediatrics
DX: I10 Essential (primary) hypertension (principal); R06.09 Other forms of dyspnea; R70.0 Elevated erythrocyte sedimentation rate; E03.9 Hypothyroidism, unspecified

== ENCOUNTER → 2024-03-02 | Outpatient (REF) | payer OTHER ==
[2024-03-02 18:02] LABS: CALCIUM LEVEL 9.6 MG/DL (8.3-10.6); CREATININE FOR GFR 1.38 MG/DL (0.55-1.30); POTASSIUM SERUM 4.4 MMOL/L (3.5-5.1)
== END ==
LOC: M LAB REF 16:13
PROVIDERS: ATTEND Pediatrics
DX: I10 Essential (primary) hypertension (principal)

== ENCOUNTER → 2024-04-02 | Outpatient (CLI) | payer OTHER ==
[~2024-04-02] MED LIST changes: +CEPH500C PO
[2024-04-02 11:54] LABS: BASO % 0.3 % (0.0-1.0); EOS # 0.1 10^3/uL (0.0-0.5); EOS % 0.9 % (0.0-3.0); HEMOGLOBIN 10.9 g/dl (12.0-15.5); LYMPH # 1.2 10^3/uL (1.5-5.0); MEAN CORPUSCULAR HEMOGLOBIN 25.5 pg (27.0-33.0); MEAN CORPUSCULAR HGB CONC 32.1 g/dl (32.0-36.5); MEAN CORPUSCULAR VOLUME 79.4 fl (80.0-96.0); MONO # 0.9 10^3/uL (0.0-0.8); MONO % 7.4 % (2.0-8.0); NEUTROPHILS # 9.9 10^3/uL (1.5-8.5); NEUTROPHILS % 80.2 % (36.0-66.0); PLATELET COUNT, AUTOMATED 306 10^3/uL (150-450); RED BLOOD COUNT 4.28 10^6/uL (4.00-5.40); WHITE BLOOD COUNT 12.4 10^3/uL (4.0-10.0)
[2024-04-02 12:21] LABS: ALBUMIN 2.7 G/DL (3.2-5.2); ALKALINE PHOSPHATASE 125 U/L (35-104); ALT/SGPT < 9 U/L (7.0-40); AST/SGOT < 8 U/L (<34); BILIRUBIN,TOTAL 0.3 MG/DL (0.3-1.2); BLOOD UREA NITROGEN 97 MG/DL (9-23); CALCIUM LEVEL 9.8 MG/DL (8.3-10.6); CARBON DIOXIDE LEVEL 20 MMOL/L (20-31); CHLORIDE LEVEL 104 MMOL/L (98-107); CHOLESTEROL LEVEL 130 MG/DL (<200); CHOLESTEROL RISK RATIO 4.03 (<5); CREATININE FOR GFR 2.03 MG/DL (0.55-1.30); FREE T4 1.45 NG/DL (0.89-1.76); GLOMERULAR FILTRATION RATE 26.2 (>45); GLUCOSE, FASTING 301 MG/DL (74-106); HDL CHOLESTEROL 32.2 MG/DL (>40); LDL CHOLESTEROL 71.8 MG/DL (<100); NON-HDL-C 97.8 MG/DL; POTASSIUM SERUM 4.4 MMOL/L (3.5-5.1); SODIUM LEVEL 134 MMOL/L (136-145); THYROID STIMULATING HORMONE 2.338 uIU/ML (0.55-4.78); TOTAL PROTEIN 7.3 G/DL (5.7-8.2); TRIGLYCERIDES LEVEL 130 MG/DL (<150)
== END ==
LOC: M LAB 11:18
PROVIDERS: ATTEND Nurse Practitioner Family
DX: E11.22 Type 2 diabetes mellitus with diabetic chronic kidney disease (principal); I10 Essential (primary) hypertension; E78.2 Mixed hyperlipidemia; E03.9 Hypothyroidism, unspecified

== ENCOUNTER 2024-04-04 23:41 | Emergency (ER) | payer OTHER ==
[~2024-04-04] VITALS: Ht 157.5 cm; Wt 110.0 kg
[~2024-04-04 23:41] MED LIST changes: -CEPH500C PO
[2024-04-05] MEDS ORDERED: CEPH500C PO (00:49)
[2024-04-05] MEDS: CEPHALEXIN 500 MG CAP PO ONE (00:56)
[2024-04-05 01:00] VITALS: BP 135/78; TEMP 97.8; O2SAT 99
== END 2024-04-05 01:10 | disposition home or self-care (01) ==
LOC: M ED 23:41
DX: L03.116 Cellulitis of left lower limb (principal); I48.91 Unspecified atrial fibrillation; E11.9 Type 2 diabetes mellitus without complications; I10 Essential (primary) hypertension; E78.5 Hyperlipidemia, unspecified; E03.9 Hypothyroidism, unspecified; Z79.4 Long term (current) use of insulin; Z79.82 Long term (current) use of aspirin; Z79.899 Other long term (current) drug therapy; Z88.0 Allergy status to penicillin; Z88.2 Allergy status to sulfonamides; Z88.8 Allergy status to other drugs, medicaments and biological substances; Z91.018 Allergy to other foods; Z91.040 Latex allergy status; Z91.030 Bee allergy status

== ENCOUNTER 2024-05-06 14:05 | Inpatient (IN) | payer OTHER ==
[~2024-05-06] VITALS: Ht 157.5 cm; Wt 96.0 kg
[~2024-05-06 14:05] MED LIST changes: +CEPH500C PO
[2024-05-06] MEDS ORDERED: BUME1TAB3 (14:49)
[2024-05-06] MEDS ORDERED: OMEP-173 PO (14:49)
[2024-05-06] MEDS ORDERED: ELIQ5TAB (14:49)
[2024-05-06] MEDS: ACETAMINOPHEN 325 MG TAB PO ONE (15:03)
[2024-05-06] MEDS: CEFEPIME HCL 2 GM in DEXTROSE 5% (D5W) ADV/MINI-BAG 50 ML IV ONE (15:50)
[2024-05-06 16:02] LABS: HEMATOCRIT 28.8 % (36.0-47.0); HEMOGLOBIN 9.1 g/dl (12.0-15.5); MEAN CORPUSCULAR HEMOGLOBIN 25.8 pg (27.0-33.0); MEAN CORPUSCULAR HGB CONC 31.6 g/dl (32.0-36.5); MEAN CORPUSCULAR VOLUME 81.6 fl (80.0-96.0); PLATELET COUNT, AUTOMATED 329 10^3/uL (150-450); RED BLOOD COUNT 3.53 10^6/uL (4.00-5.40); WHITE BLOOD COUNT 28.1 10^3/uL (4.0-10.0)
[2024-05-06 16:22] LABS: INR 1.76; PARTIAL THROMBOPLASTIN TIME 36.5 SECONDS (24.8-34.2); PROTHROMBIN TIME 20.7 SECONDS (12.5-14.5)
[2024-05-06 16:24] LABS: LYMPHOCYTES 1 % (16-44); NEUTROPHILS 93 % (28-66)
[2024-05-06 16:26] LABS: TOXIC GRANULATION 1+; TOXIC VACUOLATION 2+
[2024-05-06 16:28] LABS: ANISOCYTOSIS 1+; PLATELET ESTIMATE NORMAL (NORMAL)
[2024-05-06 17:04] LABS: ALBUMIN 1.9 G/DL (3.2-5.2); BILIRUBIN,DIRECT 0.3 MG/DL (<0.4); BILIRUBIN,TOTAL 0.7 MG/DL (0.3-1.2); CALCIUM LEVEL 8.8 MG/DL (8.3-10.6); CK-MB VALUE MASS 2.1 NG/ML (<3.6); CREATININE FOR GFR 1.86 MG/DL (0.55-1.30); MB/CK RELATIVE INDEX 0.76 (< OR =4); POTASSIUM SERUM 4.3 MMOL/L (3.5-5.1); THYROID STIMULATING HORMONE 3.702 uIU/ML (0.55-4.78); TOTAL PROTEIN 6.1 G/DL (5.7-8.2)
[2024-05-06] MEDS: [UNRECOGNIZED DRUG - OTHER] IV ONE (17:05)
[2024-05-06] MEDS: NS 0.9% IV ONE ×2 (17:05→17:30)
[2024-05-06] MEDS: [UNRECOGNIZED DRUG - OTHER] IV ONE (17:30)
[2024-05-06] MEDS: HumuLIN R (REGULAR) INSULIN (NovoLIN R) **100U/ML** PER UNIT IV ONE (17:34)
[2024-05-06] MEDS ORDERED: NOREPINEPHRINE 4MG IN D5 250ML 4 MG in IV 1 EA IV SCH (17:45)
[2024-05-06] MEDS ORDERED: VITA100093 PO (18:16)
[2024-05-06] MEDS ORDERED: HOME MED LIST COMPLETE! XX SCH (18:20)
[2024-05-06] MEDS ORDERED: **SFRHE** EPINEPHrine (EPIPEN) 0.3MG/0.3ML SYRINGE INJ PRN (18:40)
[2024-05-06] MEDS ORDERED: MORPHINE 4 MG/ML 1ML VIAL IV PRN (18:50)
[2024-05-06] MEDS: LEVEMIR (INSULIN DETEMIR) 1 UNITS/0.01ML SC ONE (19:59)
[2024-05-06] MEDS: LEVALBUTEROL HFA 45MCG/ACT 15GM INHALER INH SCH (20:00)
[2024-05-06] MEDS: LR 1,000 ML IV SCH (20:02)
[2024-05-06] MEDS: TRIAMCINOLONE ACET 0.1% CREAM 80GM TOP SCH (20:45)
[2024-05-06 21:41] VITALS: BP 116/64; TEMP 99.8; O2SAT 98
[2024-05-06] MEDS: MONTELUKAST 10 MG TAB PO SCH (22:43)
[2024-05-06] MEDS: APIXABAN 5 MG TAB (ELIQUIS) PO SCH (22:43)
[2024-05-06 22:45] VITALS: BP 102/50; O2SAT 94
[2024-05-06] MEDS ORDERED: GLUCOSE 4 GM CHEW PO PRN (23:30)
[2024-05-06] MEDS ORDERED: DEXTROSE 50% 50ML SYRINGE IV PRN (23:30)
[2024-05-06] MEDS ORDERED: GLUCAGON INJ 1MG VIAL SC PRN (23:30)
[2024-05-06] MEDS: HumuLIN R (REGULAR) INSULIN (NovoLIN R) **100U/ML** PER UNIT IV STA (23:55)
[2024-05-06] MEDS: POTASSIUM CHLORIDE 10MEQ SR TABLET PO ONE (23:56)
[2024-05-07] VITALS (18 sets, daily range): BP systolic 90–130; BP diastolic 50–63; TEMP 98–100.5; O2SAT 91–100
[2024-05-07] MEDS: LEVOTHYROXINE 150MCG TABLET (0.15MG) PO SCH (04:31)
[2024-05-07] MEDS ORDERED: VANCOMYCIN HCL 0 MG in IV FLUID PLACE HOLDER 1 EA IV SCH (04:40)
[2024-05-07 05:15] LABS: HEMATOCRIT 27.9 % (36.0-47.0); HEMOGLOBIN 8.8 g/dl (12.0-15.5); MEAN CORPUSCULAR HEMOGLOBIN 25.6 pg (27.0-33.0); MEAN CORPUSCULAR HGB CONC 31.5 g/dl (32.0-36.5); MEAN CORPUSCULAR VOLUME 81.1 fl (80.0-96.0); PLATELET COUNT, AUTOMATED 293 10^3/uL (150-450); RED BLOOD COUNT 3.44 10^6/uL (4.00-5.40); WHITE BLOOD COUNT 19.7 10^3/uL (4.0-10.0)
[2024-05-07] MEDS: ACETAMINOPHEN 325 MG TAB PO PRN (05:37)
[2024-05-07] MEDS: CEFEPIME HCL 1 GM in DEXTROSE 5% (D5W) ADV/MINI-BAG 50 ML IV SCH (05:37)
[2024-05-07 05:40] LABS: ALBUMIN 1.5 G/DL (3.2-5.2); ALKALINE PHOSPHATASE 72 U/L (35-104); ALT/SGPT < 9 U/L (7.0-40); AST/SGOT 10 U/L (<34); BILIRUBIN,TOTAL 0.4 MG/DL (0.3-1.2); BLOOD UREA NITROGEN 33 MG/DL (9-23); CALCIUM LEVEL 8.2 MG/DL (8.3-10.6); CARBON DIOXIDE LEVEL 21 MMOL/L (20-31); CHLORIDE LEVEL 103 MMOL/L (98-107); CREATININE FOR GFR 1.42 MG/DL (0.55-1.30); GLOMERULAR FILTRATION RATE 39.6 (>45); GLUCOSE, FASTING 376 MG/DL (74-106); MAGNESIUM LEVEL 1.3 MG/DL (1.8-2.4); POTASSIUM SERUM 4.4 MMOL/L (3.5-5.1); SODIUM LEVEL 134 MMOL/L (136-145); TOTAL PROTEIN 5.3 G/DL (5.7-8.2)
[2024-05-07] MEDS: VANCOMYCIN 2,000 MG/400 ML IV BAG *LOAD IV ONE (06:22)
[2024-05-07] MEDS: ATORVASTATIN 20 MG TAB PO SCH (08:47)
[2024-05-07] MEDS: LORATADINE 10 MG TAB PO SCH (08:47)
[2024-05-07] MEDS: PANTOPRAZOLE 40MG VIAL IV SCH (08:48)
[2024-05-07] MEDS: bisoproloL fumarate 10 MG TAB PO SCH (08:48)
[2024-05-07] MEDS: VITAMIN D 1,000 INTERNATIONAL UNITS TABLET PO SCH (08:53)
[2024-05-07] MEDS: INSULIN LISPRO (NovoLOG) PER UNIT SC SCH ×2 (08:55→20:58)
[2024-05-07] MEDS: MAG SULF 1GM/100ML (MAG RUN) 1 GM in IV 1 EA IV SCH (09:31)
[2024-05-07] MEDS: SODIUM PHOSPHATE INJ 30 MMOL in NS 500 ML IV ONE (12:59)
[2024-05-07] MEDS: LIDOCAINE W/EPINEPHRINE 1% 20ML VIAL SC ONE (14:39)
[2024-05-07] MEDS: NYSTATIN 100,000 UNITS/GM TOPICAL PWD 15GM TOP PRN (16:26)
[2024-05-07] MEDS: CEFEPIME HCL 2 GM in DEXTROSE 5% (D5W) ADV/MINI-BAG 50 ML IV SCH (16:37)
[2024-05-07] MEDS ORDERED: VANCOMYCIN HCL 750 MG, VIAL MATE ADAPTER 1 EACH in NS 250 ML IV SCH (20:00)
[2024-05-07] MEDS: LEVEMIR (INSULIN DETEMIR) 1 UNITS/0.01ML SC SCH (20:36)
[2024-05-07] MEDS: VANCOMYCIN HCL 500 MG in DEXTROSE 5% (D5W) MINI-BAG PLU 100 ML IV SCH (22:28)
[2024-05-08] VITALS (13 sets, daily range): BP systolic 95–122; BP diastolic 51–65; TEMP 97.8–99.3; O2SAT 93–98
[2024-05-08] MEDS ORDERED: VANCOMYCIN 1,000MG/200 ML IV BAG IV SCH (06:00)
[2024-05-08 07:02] LABS: BASO # 0.1 10^3/uL (0.0-0.2); BASO % 0.2 % (0.0-1.0); EOS # 0.1 10^3/uL (0.0-0.5); EOS % 0.6 % (0.0-3.0); HEMATOCRIT 23.3 % (36.0-47.0); HEMOGLOBIN 7.7 g/dl (12.0-15.5); LYMPH # 1.2 10^3/uL (1.5-5.0); LYMPH % 4.9 % (24.0-44.0); MEAN CORPUSCULAR HEMOGLOBIN 26.6 pg (27.0-33.0); MEAN CORPUSCULAR VOLUME 80.6 fl (80.0-96.0); MONO # 0.9 10^3/uL (0.0-0.8); MONO % 3.5 % (2.0-8.0); NEUTROPHILS # 21.3 10^3/uL (1.5-8.5); NEUTROPHILS % 87.9 % (36.0-66.0); PLATELET COUNT, AUTOMATED 306 10^3/uL (150-450); RED BLOOD COUNT 2.89 10^6/uL (4.00-5.40); WHITE BLOOD COUNT 24.3 10^3/uL (4.0-10.0)
[2024-05-08 07:51] LABS: C REACTIVE PROTEIN QUANTITATIV 32.11 MG/DL (<1.0); CALCIUM LEVEL 7.9 MG/DL (8.3-10.6); CREATININE FOR GFR 1.38 MG/DL (0.55-1.30); MAGNESIUM LEVEL 1.9 MG/DL (1.8-2.4); PHOSPHORUS LEVEL 3.3 MG/DL (2.4-5.1); POTASSIUM SERUM 3.9 MMOL/L (3.5-5.1)
[2024-05-09 03:59] VITALS: BP 114/57; TEMP 98; O2SAT 98
[2024-05-09 05:17] LABS: HEMATOCRIT 25.5 % (36.0-47.0); HEMOGLOBIN 8.2 g/dl (12.0-15.5); MEAN CORPUSCULAR HEMOGLOBIN 25.7 pg (27.0-33.0); MEAN CORPUSCULAR HGB CONC 32.2 g/dl (32.0-36.5); MEAN CORPUSCULAR VOLUME 79.9 fl (80.0-96.0); PLATELET COUNT, AUTOMATED 360 10^3/uL (150-450); RED BLOOD COUNT 3.19 10^6/uL (4.00-5.40); WHITE BLOOD COUNT 24.5 10^3/uL (4.0-10.0)
[2024-05-09 05:41] LABS: C REACTIVE PROTEIN QUANTITATIV 24.18 MG/DL (<1.0); CALCIUM LEVEL 8.4 MG/DL (8.3-10.6); CREATININE FOR GFR 1.2 MG/DL (0.55-1.30); GLOMERULAR FILTRATION RATE 48.1 (>45); MAGNESIUM LEVEL 1.9 MG/DL (1.8-2.4); POTASSIUM SERUM 3.8 MMOL/L (3.5-5.1)
[2024-05-09 08:00] VITALS: BP 124/62; TEMP 98.3; O2SAT 96
[2024-05-09 12:00] VITALS: BP 125/68; TEMP 98.2; O2SAT 99
[2024-05-09] MEDS: CEPHALEXIN 500 MG CAP PO SCH (12:14)
[2024-05-09] MEDS: FUROSEMIDE 40MG/4ML VIAL IV ONE (13:39)
[2024-05-09] MEDS: VANICREAM MOISTURIZING SKIN CREAM 113GM TUBE TOP SCH (14:36)
[2024-05-09 20:48] VITALS: BP 128/69; TEMP 98; O2SAT 98
[2024-05-09] MEDS: LEVEMIR (INSULIN DETEMIR) 1 UNITS/0.01ML SC SCH (20:51)
[2024-05-10 05:51] LABS: HEMOGLOBIN 8.4 g/dl (12.0-15.5); MEAN CORPUSCULAR HEMOGLOBIN 25.7 pg (27.0-33.0); MEAN CORPUSCULAR HGB CONC 32.3 g/dl (32.0-36.5); MEAN CORPUSCULAR VOLUME 79.5 fl (80.0-96.0); PLATELET COUNT, AUTOMATED 471 10^3/uL (150-450); RED BLOOD COUNT 3.27 10^6/uL (4.00-5.40); WHITE BLOOD COUNT 18.4 10^3/uL (4.0-10.0)
[2024-05-10 05:59] VITALS: BP 123/56; O2SAT 100
[2024-05-10 06:12] LABS: CALCIUM LEVEL 8.3 MG/DL (8.3-10.6); CREATININE FOR GFR 1.17 MG/DL (0.55-1.30); GLOMERULAR FILTRATION RATE 49.6 (>45); MAGNESIUM LEVEL 1.8 MG/DL (1.8-2.4); POTASSIUM SERUM 3.8 MMOL/L (3.5-5.1)
[2024-05-10 08:00] VITALS: BP 132/69; TEMP 98.1; O2SAT 98
[2024-05-10] MEDS: LEVEMIR (INSULIN DETEMIR) 1 UNITS/0.01ML SC SCH (08:40)
[2024-05-10] MEDS: OMEPRAZOLE 20MG CAP PO SCH (08:41)
[2024-05-10] MEDS: BUMETANIDE 1 MG TAB PO SCH (08:42)
[2024-05-10 10:36] VITALS: BP 138/61
[2024-05-10] MEDS: NYSTATIN CREAM 15GM TOP SCH (17:13)
[2024-05-10] MEDS: FUROSEMIDE 40MG/4ML VIAL IV SCH (17:15)
[2024-05-10] MEDS: FLUCONAZOLE 50MG TABLET PO ONE (17:18)
[2024-05-10 20:20] VITALS: BP 98/56; TEMP 97.5; O2SAT 97
[2024-05-10] MEDS: LEVALBUTEROL 1.25MG 0.5ML CONCENTRATE NEB NEB PRN (20:41)
[2024-05-11 05:14] VITALS: BP 112/57; TEMP 97.1; O2SAT 98
[2024-05-11 05:37] LABS: HEMATOCRIT 28.4 % (36.0-47.0); HEMOGLOBIN 9.1 g/dl (12.0-15.5); MEAN CORPUSCULAR HEMOGLOBIN 25.8 pg (27.0-33.0); MEAN CORPUSCULAR VOLUME 80.5 fl (80.0-96.0); PLATELET COUNT, AUTOMATED 506 10^3/uL (150-450); RED BLOOD COUNT 3.53 10^6/uL (4.00-5.40); WHITE BLOOD COUNT 17.4 10^3/uL (4.0-10.0)
[2024-05-11 06:03] LABS: CREATININE FOR GFR 1.11 MG/DL (0.55-1.30); GLOMERULAR FILTRATION RATE 52.7 (>45); MAGNESIUM LEVEL 1.6 MG/DL (1.8-2.4); POTASSIUM SERUM 3.6 MMOL/L (3.5-5.1)
[2024-05-11 08:32] VITALS: BP 132/64; TEMP 97.3; O2SAT 97
[2024-05-11] MEDS: LIDOCAINE W/EPINEPHRINE 1% 20ML VIAL SC ONE (10:00)
[2024-05-11] MEDS: LEVEMIR (INSULIN DETEMIR) 1 UNITS/0.01ML SC SCH (12:32)
[2024-05-11] MEDS: MAG SULF 1GM/100ML (MAG RUN) 1 GM in IV 1 EA IV SCH (12:32)
[2024-05-11] MEDS ORDERED: TRIAMCINOLONE ACET 0.1% CREAM 15GM TOP PRN (16:15)
[2024-05-11 20:00] VITALS: BP 129/62; TEMP 96.8; O2SAT 96
[2024-05-12 04:00] VITALS: BP 126/58; TEMP 97.2; O2SAT 100
[2024-05-12 05:07] LABS: HEMATOCRIT 28.7 % (36.0-47.0); HEMOGLOBIN 9.1 g/dl (12.0-15.5); MEAN CORPUSCULAR HGB CONC 31.7 g/dl (32.0-36.5); PLATELET COUNT, AUTOMATED 519 10^3/uL (150-450); WHITE BLOOD COUNT 15.4 10^3/uL (4.0-10.0)
[2024-05-12 05:30] LABS: CALCIUM LEVEL 7.9 MG/DL (8.3-10.6); CREATININE FOR GFR 1.15 MG/DL (0.55-1.30); GLOMERULAR FILTRATION RATE 50.6 (>45); MAGNESIUM LEVEL 1.8 MG/DL (1.8-2.4); POTASSIUM SERUM 3.6 MMOL/L (3.5-5.1)
[2024-05-12 08:07] VITALS: BP 131/60; TEMP 97.9; O2SAT 99
[2024-05-12 09:07] LABS: C REACTIVE PROTEIN QUANTITATIV 6.03 MG/DL (<1.0)
[2024-05-12 16:00] VITALS: BP 114/67; TEMP 97.4; O2SAT 99
[2024-05-12 19:41] VITALS: BP 114/57; TEMP 97
[2024-05-13 04:07] VITALS: BP 100/57; TEMP 97
[2024-05-13 05:19] LABS: HEMATOCRIT 27.3 % (36.0-47.0); HEMOGLOBIN 8.8 g/dl (12.0-15.5); MEAN CORPUSCULAR HEMOGLOBIN 25.7 pg (27.0-33.0); MEAN CORPUSCULAR HGB CONC 32.2 g/dl (32.0-36.5); MEAN CORPUSCULAR VOLUME 79.8 fl (80.0-96.0); PLATELET COUNT, AUTOMATED 529 10^3/uL (150-450); RED BLOOD COUNT 3.42 10^6/uL (4.00-5.40); WHITE BLOOD COUNT 15.3 10^3/uL (4.0-10.0)
[2024-05-13 05:49] LABS: CALCIUM LEVEL 7.7 MG/DL (8.3-10.6); CREATININE FOR GFR 1.11 MG/DL (0.55-1.30); GLOMERULAR FILTRATION RATE 52.7 (>45); MAGNESIUM LEVEL 1.5 MG/DL (1.8-2.4); POTASSIUM SERUM 3.5 MMOL/L (3.5-5.1)
[2024-05-13] MEDS: MAG SULF 1GM/100ML (MAG RUN) 1 GM in IV 1 EA IV SCH (06:12)
[2024-05-13] MEDS: POTASSIUM CHLORIDE 10MEQ SR TABLET PO ONE (08:58)
[2024-05-13] MEDS: SANTYL OINT 30GM TOP SCH (09:00)
[2024-05-13 20:00] VITALS: BP 104/49; TEMP 97.3; O2SAT 97
[2024-05-14 03:50] VITALS: BP 114/51; TEMP 97.7; O2SAT 100
[2024-05-14 06:38] LABS: HEMATOCRIT 29.7 % (36.0-47.0); HEMOGLOBIN 9.4 g/dl (12.0-15.5); MEAN CORPUSCULAR HEMOGLOBIN 25.5 pg (27.0-33.0); MEAN CORPUSCULAR HGB CONC 31.6 g/dl (32.0-36.5); MEAN CORPUSCULAR VOLUME 80.7 fl (80.0-96.0); PLATELET COUNT, AUTOMATED 542 10^3/uL (150-450); RED BLOOD COUNT 3.68 10^6/uL (4.00-5.40); WHITE BLOOD COUNT 14.2 10^3/uL (4.0-10.0)
[2024-05-14 06:58] LABS: CALCIUM LEVEL 7.9 MG/DL (8.3-10.6); CREATININE FOR GFR 1.26 MG/DL (0.55-1.30); GLOMERULAR FILTRATION RATE 45.5 (>45); MAGNESIUM LEVEL 1.9 MG/DL (1.8-2.4); POTASSIUM SERUM 3.8 MMOL/L (3.5-5.1)
[2024-05-14 12:00] VITALS: BP 142/59; TEMP 97.3; O2SAT 95
[2024-05-14] MEDS: FUROSEMIDE 40 MG TAB PO SCH (17:41)
[2024-05-14 19:48] VITALS: BP 118/72; TEMP 97.2; O2SAT 97
[2024-05-15 04:35] VITALS: BP 131/72; TEMP 96.8; O2SAT 99
[2024-05-15 06:46] LABS: HEMATOCRIT 29.2 % (36.0-47.0); MEAN CORPUSCULAR HEMOGLOBIN 25.5 pg (27.0-33.0); MEAN CORPUSCULAR HGB CONC 30.8 g/dl (32.0-36.5); MEAN CORPUSCULAR VOLUME 82.7 fl (80.0-96.0); PLATELET COUNT, AUTOMATED 490 10^3/uL (150-450); RED BLOOD COUNT 3.53 10^6/uL (4.00-5.40); WHITE BLOOD COUNT 12.9 10^3/uL (4.0-10.0)
[2024-05-15 07:12] LABS: CALCIUM LEVEL 8.1 MG/DL (8.3-10.6); CREATININE FOR GFR 1.15 MG/DL (0.55-1.30); GLOMERULAR FILTRATION RATE 50.6 (>45); MAGNESIUM LEVEL 1.7 MG/DL (1.8-2.4); POTASSIUM SERUM 3.9 MMOL/L (3.5-5.1)
[2024-05-15 12:00] VITALS: BP 126/98; TEMP 97.3; O2SAT 95
[2024-05-15 19:48] VITALS: BP 115/66; TEMP 97.7; O2SAT 96
[2024-05-15] MEDS: ceFAZolin SOD 2 GM in IV 1 EA IV SCH (23:28)
[2024-05-16 04:00] VITALS: BP 121/69; TEMP 97; O2SAT 98
[2024-05-16 08:36] VITALS: BP 128/67
[2024-05-16 12:00] VITALS: BP 112/65; TEMP 97.2; O2SAT 98
[2024-05-17 04:00] VITALS: BP 126/53; TEMP 97.7; O2SAT 96
[2024-05-18 04:00] VITALS: BP 130/62; TEMP 97.7; O2SAT 100
[2024-05-18] MEDS ORDERED: VANI1CRE5 TOP (16:40)
[2024-05-18] MEDS ORDERED: TRIA1CR80 TOP (16:40)
[2024-05-18] MEDS ORDERED: DOXY100C3 PO (16:40)
[2024-05-18] MEDS ORDERED: AMOX875T2 PO (16:40)
[2024-05-18] MEDS: AUGMENTIN 875 MG TAB PO ONE (18:06)
[2024-05-18] MEDS: DOXYCYCLINE HYCLATE 100MG TABLET PO ONE (18:06)
== END 2024-05-18 18:30 | disposition home health service (06) | DRG 720 ==
LOC: EDBD 14:05 → M ED 14:05 → M ED INP 19:45 → EEVIPCON 19:45 → M ICU 21:42 → M MS5PR 05-13 15:53
PROVIDERS: ADMIT Student in an Organized Health Care Education/Training Program; ATTEND Student in an Organized Health Care Education/Training Program
PROC: B246ZZZ Ultrasonography of Right and Left Heart (ICD-10-PCS; principal; 2024-05-07)
PROC: 0JBN0ZZ Excision of Right Lower Leg Subcutaneous Tissue and Fascia, Open Approach (ICD-10-PCS; 2024-05-07)
PROC: 0JBN0ZZ Excision of Right Lower Leg Subcutaneous Tissue and Fascia, Open Approach (ICD-10-PCS; 2024-05-11)
DX: A41.9 Sepsis, unspecified organism (principal); N17.9 Acute kidney failure, unspecified; E11.52 Type 2 diabetes mellitus with diabetic peripheral angiopathy with gangrene; I13.0 Hypertensive heart and chronic kidney disease with heart failure and stage 1 through stage 4 chronic kidney disease, or unspecified chronic kidney disease; E87.20 Acidosis, unspecified; I50.32 Chronic diastolic (congestive) heart failure; E11.22 Type 2 diabetes mellitus with diabetic chronic kidney disease; E11.65 Type 2 diabetes mellitus with hyperglycemia; I48.0 Paroxysmal atrial fibrillation; E66.01 Morbid (severe) obesity due to excess calories; Z68.41 Body mass index [BMI] 40.0-44.9, adult; L03.115 Cellulitis of right lower limb; E78.5 Hyperlipidemia, unspecified; R29.6 Repeated falls; E03.9 Hypothyroidism, unspecified; K21.9 Gastro-esophageal reflux disease without esophagitis; J44.9 Chronic obstructive pulmonary disease, unspecified; N18.9 Chronic kidney disease, unspecified; Z79.890 Hormone replacement therapy; Z79.899 Other long term (current) drug therapy; Z79.01 Long term (current) use of anticoagulants; R65.20 Severe sepsis without septic shock; B95.62 Methicillin resistant Staphylococcus aureus infection as the cause of diseases classified elsewhere

== ENCOUNTER → 2024-06-08 | Outpatient (CLI) | payer OTHER ==
[~2024-06-08] MED LIST changes: +AMOX875T2 PO; +BUME1TAB3; +DOXY100C3 PO; +ELIQ5TAB; +OMEP-173 PO; +TRIA1CR80 TOP; +VANI1CRE5 TOP; +VITA100093 PO
[2024-06-08 11:33] LABS: ALBUMIN 2.6 G/DL (3.2-5.2); ALKALINE PHOSPHATASE 98 U/L (35-104); ALT/SGPT < 9 U/L (7.0-40); AST/SGOT 11 U/L (<34); BILIRUBIN,TOTAL 0.2 MG/DL (0.3-1.2); BLOOD UREA NITROGEN 29 MG/DL (9-23); CALCIUM LEVEL 9.1 MG/DL (8.3-10.6); CARBON DIOXIDE LEVEL 24 MMOL/L (20-31); CHLORIDE LEVEL 105 MMOL/L (98-107); CREATININE FOR GFR 1.14 MG/DL (0.55-1.30); GLOMERULAR FILTRATION RATE 50.9 (>45); GLUCOSE, FASTING 192 MG/DL (74-106); POTASSIUM SERUM 4.8 MMOL/L (3.5-5.1); SODIUM LEVEL 138 MMOL/L (136-145); TOTAL PROTEIN 7.5 G/DL (5.7-8.2)
== END ==
LOC: M LAB 10:39
PROVIDERS: ATTEND Surgery
DX: L97.912 Non-pressure chronic ulcer of unspecified part of right lower leg with fat layer exposed (principal)

== ENCOUNTER → 2024-06-30 | Outpatient (CLI) | payer OTHER | LOC: M RAD 10:35 | PROVIDERS: ATTEND Surgery | DX: I73.9 Peripheral vascular disease, unspecified (principal); Z53.9 Procedure and treatment not carried out, unspecified reason ==

== ENCOUNTER → 2024-12-07 | Outpatient (CLI) | payer OTHER ==
[~2024-12-07] MED LIST changes: +BLOO-308 XX; -CVS1KIT XX
[2024-12-07 10:20] LABS: BASO # 0.1 10^3/uL (0.0-0.2); BASO % 0.5 % (0.0-1.0); EOS # 0.4 10^3/uL (0.0-0.5); EOS % 3.8 % (0.0-3.0); LYMPH # 1.3 10^3/uL (1.5-5.0); LYMPH % 12.7 % (24.0-44.0); MONO # 0.9 10^3/uL (0.0-0.8); MONO % 8.6 % (2.0-8.0); NEUTROPHILS # 7.3 10^3/uL (1.5-8.5); NEUTROPHILS % 73.7 % (36.0-66.0); PLATELET COUNT, AUTOMATED 362 10^3/uL (150-450)
[2024-12-07 10:51] LABS: ALT/SGPT < 9 U/L (7.0-40); AST/SGOT 8 U/L (<34); CALCIUM LEVEL 9.1 MG/DL (8.3-10.6); CARBON DIOXIDE LEVEL 23 MMOL/L (20-31); CHLORIDE LEVEL 106 MMOL/L (98-107); CHOLESTEROL LEVEL 175 MG/DL (<200); CHOLESTEROL RISK RATIO 6.14 (<5); CREATININE FOR GFR 1.69 MG/DL (0.55-1.30); GLOMERULAR FILTRATION RATE 33.3 (>45); LDL CHOLESTEROL 98.9 MG/DL (<100); NON-HDL-C 146.5 MG/DL; POTASSIUM SERUM 4.6 MMOL/L (3.5-5.1); SODIUM LEVEL 141 MMOL/L (136-145); TRIGLYCERIDES LEVEL 238 MG/DL (<150)
[2024-12-07 10:53] LABS: FREE T4 1.13 NG/DL (0.89-1.76)
[2024-12-07 11:08] LABS: ESTIMATED AVERAGE GLUCOSE 229.0 MG/DL (60-110)
== END ==
LOC: M LAB 09:25
DX: Z00.8 Encounter for other general examination (principal); I10 Essential (primary) hypertension; E11.9 Type 2 diabetes mellitus without complications; E78.5 Hyperlipidemia, unspecified; E03.9 Hypothyroidism, unspecified